=== PATIENT | male | born 1995 | race Caucasian/White ===

== ENCOUNTER 2025-05-02 13:34 | Emergency (ER) | payer OTHER, SELFPAY ==
[2025-05-02 13:47] VITALS: BP 168/103; PULSE 116; RESP 16; TEMP 36.8; O2SAT 100; BMI 31.1
[2025-05-02 14:07] LABS: Hematocrit 46.3 % (42.0-52.0); Hemoglobin 16.3 g/dL (14.1-18.0); Immature Granulocytes % 0.5 %; Mean Corpuscular HGB Conc 35.2 g/dL (31.8-35.4); Mean Corpuscular Hemoglobin 34.5 pg (27.0-31.2); Mean Corpuscular Volume 97.9 fl (80-94); Nucleated Red Blood Cells % 0 %; Platelet Count 266 K/mm3 (142-424); Red Blood Count 4.73 M/mm3 (4.60-6.20); Red Cell Distribution Width-SD 45.8 fL; White Blood Count 6.0 K/mm3 (4.8-10.8)
[2025-05-02 14:14] LABS: Alanine Aminotransferase 89 U/L (12-78); Albumin Level 5.2 g/dl (3.5-5.0); Albumin/Globulin Ratio 1.9 (1.1-1.8); Alkaline Phosphatase 42 U/L (38-126); Anion Gap 17.3 mEq/L (5-15); Aspartate Amino Transferase 101 U/L (17-59); Bilirubin,Total 1.6 mg/dl (0.2-1.3); Blood Urea Nitrogen 8 mg/dl (9-20); Calcium 10.0 mg/dl (8.4-10.2); Carbon Dioxide 27 mmol/L (22.0-30.0); Chloride 92 mmol/L (98-107); Creatinine Clearance Estimated 176 mL/min (50-200); Creatinine,Serum 0.80 mg/dl (0.66-1.25); Estimated Glomerular Filt Rate 113 ml/min (>60); GFR (African American) 136 ML/MIN (>60); Globulin 2.7 g/dL (1.3-3.2); Glucose 102 mg/dl (74-100); Lipase 74 U/L (23-300); Magnesium 1.6 mg/dl (1.6-2.3); Potassium 4.3 mmoL/L (3.5-5.1); Sodium 132 mmol/L (136-145); Total Protein,Serum 7.9 g/dl (6.3-8.2)
--- NOTE | 2025-05-02 14:26 | ECG_ITS ---
APPROVED REPORT Exam: Resting ECG HR:101 bpm ECG Measurements Heart Rate 101 AXES AZ 167 P 68 QRSd 95 QRS 68 QT 318 T 53 QTc 376 Conclusion SINUS TACHYCARDIA ABNORMAL RHYTHM ECG UNCONFIRMED REPORT Electronically signed by : Shan Stanley, 05/03/2025 21:38:36
[2025-05-02 14:35] LABS: Troponin I < 0.01 ng/ml (0.00-0.034)
--- NOTE | 2025-05-02 14:36 | ED_ITS ---
<Statement entered by Gordo Stanley MD - 05/03/25 21:32> I was consulted by the ZAC, and we discussed the complexity of the problems being addressed. I approved the treatment and management plan for this patient's care in the emergency department, thus performing a substantive portion of the medical decision making. Gordo Stanley MD, PIERRE, FACEP Discharge Plan Disposition Patient Disposition: Home, Self-Care Referrals Follow up/Referrals: Tania Fernandez [Primary Care Provider, Medical] - See instructions Activity Restrictions/Add. Instructions Additional Instructions/Restrictions: Increase fluids and rest. Have your liver enzymes checked in 1 month with Tania Fernandez. Also wear the Holter monitor for the 48 hours as instructed. If you have any other problems or concerns please return to the ED. Clinical Impressions Clinical Impression: Palpitations, Acute alcoholic hepatitis Instructions Patient Instructions: Alcoholic Hepatitis (Alternative Therapy), DI for Palpitations Print Language Print Language: Syrian Discharge ED Provider: Gordo Stanley General Adult HPI General Chief complaint: Arrhythmia/Palpitations Stated complaint: Sent by PCP Elevated HR Time Seen by Provider: 05/02/25 13:39 Mode of Arrival: Ambulatory Source of Information: Patient Description of Symptoms (Recalled from ER Triage Doc. by RN): c/o feeling as though his heart is racing since . attempted to see PCP, but could not be seen today and was told to come to the ED. Denies chest pain/ SOA. History of Present Illness HPI narrative: 29-year-old male presents to the ED today for complaint of not feeling right . Patient was in [place] on Thursday and loading up luggage when he started feeling bad. He states that he took the stairs up and down 9 loads of luggage and when he got done he said he was hot and felt like he could not cool off. He says he had a few seconds of dizziness and then faded away. He had no chest pain no headache no shortness of breath. He says he felt like since then his heart rate has not decreased. He says he just feels like it is racing all the time. Related Data Allergies Allergy/AdvReac Type Severity Reaction Status Date / Time No Known Allergies Allergy Verified 05/02/25 13:51 [facility] Disclaimer: The information contained in this section may have been updated after the patient was seen, as this information can be updated by other users. Medical History (Updated 05/02/25 @ 16:11 by Shaina Batista (ED), [employer]) Hypertension Social History Smoking Status: Never smoker alcohol intake: former current occupational status: other Travel in the last 8 weeks?: None ROS Obtained: Yes Systems reviewed as appropriate & no additional complaints except as documented Constitutional Constitutional: Reports as per HPI Physical Exam General General appearance: alert Head Head exam: normocephalic Eye Eye exam: Present normal appearance and PERRL ENT ENT exam: Present mucous membranes moist Neck Neck exam: Present normal inspection and trachea midline Chest Chest inspection: Present normal inspection and symmetric chest wall rise Respiratory Respiratory exam: Present normal lung sounds bilaterally Cardiovascular Cardiovascular exam: Present normal rhythm, tachycardia, normal heart sounds, +S1 and +S2 Abdominal Exam Abdominal exam: Present soft and normal bowel sounds Extremities Exam Extremities exam: Present normal inspection, full ROM and normal capillary refill Back Exam Back exam: Present full ROM Neurological Exam Neurological exam: Present alert, oriented X3 and normal gait Psychiatric Psychiatric exam: Present normal affect and normal mood Skin Skin exam: Present warm and dry Medical Decision Making Medical Records Screening: Per USPSTF and CDC recommendations, given the prevalence of disease in our region, it is our hospital?s policy to screen for HIV and viral Hepatitis for all patients aged 18 and over and those with ongoing risk factors. Hu Inquiry Pt receiving controlled substance: No Hu was queried for this patient: No Vital Signs: 05/02/25 13:47 05/02/25 14:55 05/02/25 15:25 Temperature 98.3 F Temperature Source Oral Pulse Rate 106 H 109 H Pulse Rate [Left Brachial] 116 H Respiratory Rate 16 20 20 Blood Pressure 147/83 H 135/80 Blood Pressure [Left Arm] 168/103 H Blood Pressure Mean [Left Arm] 124 Blood Pressure Source [Left Arm] Automatic Cuff Blood Pressure Position [Left Arm] Sitting 02 Sat by Pulse Oximetry 100 99 96 Oxygen Delivery Method Room Air Room Air 05/02/25 15:55 05/02/25 16:33 Temperature 98.7 F Temperature Source Pulse Rate 99 H 96 H Pulse Rate [Left Brachial] Respiratory Rate 18 20 Blood Pressure 146/71 H 138/74 Blood Pressure [Left Arm] Blood Pressure Mean [Left Arm] Blood Pressure Source [Left Arm] Blood Pressure Position [Left Arm] 02 Sat by Pulse Oximetry 95 Oxygen Delivery Method Lab Data Lab Results 05/02/25 13:50: WBC 6.0, RBC 4.73, Hgb 16.3, Hct 46.3, MCV 97.9 H, MCH 34.5 H, MCHC 35.2, RDW 12.7, Plt Count 266, MPV 9.7, Neut % (Auto) 57.2, Lymph % (Auto) 30.0, [place] % (Auto) 9.8 H, Eos % (Auto) 2.0, Baso % (Auto) 0.5, Neut # (Auto) 3.4, Lymph # (Auto) 1.8, [place] # (Auto) 0.6, Eos # (Auto) 0.1, Baso # (Auto) 0.0, Sodium 132 L, Potassium 4.3, Chloride 92 L, Carbon Dioxide 27, Anion Gap 17.3 H, BUN 8 L, Creatinine 0.80, Estimated Creat Clear 176, Estimated GFR 113, Est GFR ( Amer) 136, Glucose 102 H, Calcium 10.0, Magnesium 1.6, Total Bilirubin 1.6 H, AST 101 H, ALT 89 H, Alkaline Phosphatase 42, Troponin I < 0.01, Total Protein 7.9, Albumin 5.2 H, Globulin 2.7, Albumin/Globulin Ratio 1.9 H, Lipase 74, TSH 2.14, Plasma/Serum Alcohol < 10, HCV Ab CRYSTAL w/Rflx PCR Qn Negative, HIV Ag/Ab Combo Qual Negative 05/02/25 13:50 05/02/25 13:50 Orders (Tests/Meds): ED MEDICATIONS Discontinued Medications Generic Name Dose Route Start Last Admin Trade Name Julianoq PRN Reason Stop Dose Admin Sodium Chloride 1,000 mls @ 999 mls/hr 05/02/25 14:00 05/02/25 14:37 Sod Chlor 0.9% 1000ml Bag IV 05/02/25 15:00 999 mls/hr .Q1H1M ONE Administration ORDERS Category Date Time Status Blood alcohol [Ethyl Alcohol] Stat Lab 05/02/25 13:50 Completed CBC [Complete Blood Count Auto Diff] Stat Lab 05/02/25 13:50 Completed Comprehensive Metabolic Panel Stat Lab 05/02/25 13:50 Completed HIV Combo Routine Lab 05/02/25 13:50 Completed Hepatitis C Ab Qual. W/ RFX Routine Lab 05/02/25 13:50 Completed Lipase Stat Lab 05/02/25 13:50 Completed Magnesium Stat Lab 05/02/25 13:50 Completed TSH [Thyroid Stimulating Hormone] Stat Lab 05/02/25 13:50 Completed Trop I [Troponin I] Stat Lab 05/02/25 13:50 Completed ECG holter initial pfn Stat Y 05/02/25 15:32 Completed Medical Decision Narrative: patient is a 29-year-old male presenting to the emergency department for evaluation of elevated blood pressure and palpitations, all started on Thursday after he was on vacation and had started drinking alcohol again after stopping for unknown amount of time. Patient is hemodynamically stable and nontoxic- appearing upon arrival, afebrile. Differential diagnosis includes arrhythmia, palpitations, hypertension, alcohol, among others. Workup will be conducted with hematologic labs. Initial inventions include crystalloid bolus. Initial workup reviewed by me hematologic labs are remarkable for acute alcoholic hepatitis. Discussed this case with Dr. Stanley. Will place this patient on a Holter monitor while he is in the ER. Discussed with patient his alcohol intake and he had quit up until he went to vacation and then he started drinking because [place] the [place] was [place] excuse. He and I discussed his liver function. He will have this repeated by his PCP. Critical Care Critical Care Time Critical Care Time: No
[2025-05-02] MEDS: 0.9 % SODIUM CHLORIDE 1000ML 1,000 ML 999 ML IV (14:37)
[2025-05-02 14:55] VITALS: BP 147/83; PULSE 106; RESP 20; O2SAT 99
[2025-05-02 15:22] LABS: Thyroid Stimulating Hormone 2.14 uIU/mL (0.465-4.68)
[2025-05-02 15:25] VITALS: BP 135/80; PULSE 109; RESP 20; O2SAT 96
--- NOTE | 2025-05-02 15:32 | PC.NURSE ---
RT notified of need for holter monitor.
[2025-05-02 15:40] LABS: Hepatitis C Ab Qual. W/ RFX NEGATIVE (Negative)
--- NOTE | 2025-05-02 15:50 | PC.NURSE ---
RT at bedside placing holter monitor.
--- NOTE | 2025-05-02 15:53 | PC.NURSE ---
Halter monitor placed by Resp.
[2025-05-02 15:55] VITALS: BP 146/71; PULSE 99; RESP 18; O2SAT 95
[2025-05-02 16:33] VITALS: BP 138/74; PULSE 96; RESP 20; TEMP 37.1; O2SAT 99
== END 2025-05-02 16:35 | disposition home or self-care (01) ==
PROVIDERS: Nurse Practitioner; Emergency Provider Student in an Organized Health Care Education/Training Program; PCP Nurse Practitioner Family
DX: R00.2 Palpitations (principal); K70.10 Alcoholic hepatitis without ascites; E87.1 Hypo-osmolality and hyponatremia; I10 Essential (primary) hypertension; F10.188 Alcohol abuse with other alcohol-induced disorder
CPT/HCPCS: 80053; 80320; 83690; 83735; 84443; 84484; 85025; 86803; 87389; 93005; 93225; 93227; 96360; 99284; J7030